=== PATIENT | female | born 2000 | race Caucasian/White ===

== ENCOUNTER 2021-12-18 17:14 | Emergency (ER) | payer OTHER ==
[~2021-12-18] VITALS: Ht 157.5 cm; Wt 68.9 kg
[2021-12-18 17:14] VITALS: BP 111/66
[2021-12-18] MEDS ORDERED: DULO1CAP4 PO ×2 (17:23→21:38)
== END 2021-12-18 22:48 | disposition home or self-care (01) ==
LOC: M ED 17:14
DX: Z76.0 Encounter for issue of repeat prescription (principal); D64.9 Anemia, unspecified; F41.9 Anxiety disorder, unspecified; K58.9 Irritable bowel syndrome, unspecified